=== PATIENT | male | born 1990 | race Caucasian/White ===

== ENCOUNTER 2018-04-16 19:51 | Emergency (ER) | payer BC, OTHER ==
[2018-04-16] MEDS ORDERED: LIDOCAINE 1% INJ-PF (10 MG/ML) 30 ML SDV INJ ONE (21:14)
--- NOTE | 2018-04-16 21:18 | ER Document Report ---
ED General - General Chief Complaint: Laceration to L hand Stated Complaint: LACERATION TO LEFT HAND Time Seen by Provider: 04/16/18 21:13 Mode of Arrival: Ambulatory Information source: Patient TRAVEL OUTSIDE OF THE [place] 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 Last tetanus shot was within 5 years. Not having any difficulty moving his fingers and no loss of sensation. - Related Data Allergies/Adverse Reactions: No Known Allergies Allergy (Verified 12/18/11 18:59) Past Medical History - General Information source: Patient - Social History Smoking Status: Never Smoker Family History: Reviewed & Not Pertinent Past Surgical History: Reports: Hx Orthopedic Surgery - left elbow - Immunizations Hx Diphtheria, Pertussis, Tetanus Vaccination: Yes - 2011 Review of Systems - Review of Systems Notes: Constitutional: No fevers. No chills. EENT: No eye redness. No eye pain. No ear pain. No sore throat. Cardiovascular: No chest pain. No palpitations. Respiratory: No cough. No shortness of breath. No respiratory distress. Gastrointestinal: No abdominal pain. No nausea, vomiting, or diarrhea. Genitourinary: Atraumatic. No lesions. No pain. No discharge. Musculoskeletal: Left hand laceration. Skin: No rash or lesions. Lymphatic: No swollen lymph nodes. Neurologic: No headache. No syncope. Psychiatric: No suicidal or homicidal ideation. Physical Exam - Vital signs Vitals: Temp Pulse Resp BP Pulse Ox 98.7 F 58 L 16 131/69 H 99 04/16/18 20:25 04/16/18 20:25 04/16/18 20:25 04/16/18 20:25 04/16/18 20:25 - Notes Notes: General: Well-developed, well-nourished. In no acute distress. Non-toxic appearing. Cardiac: Well-perfused. Regular rate and rhythm. No murmurs, rubs, or gallops. Pulmonary: No respiratory distress. No cyanosis. Bilateral lung fiels are clear to auscultation. Abdominal: Non-distended. Non-rigid. Bowels sounds are present in all four quadrants. No guarding or rebound. HEENT: Head is atraumatic. Conjunctivae not reddened. No tearing. PERRL. EOMI. Orbits atraumatic. No periorbital swelling or erythema. Oropharynx is without erythema, swelling, or exudates. Neck: Supple. No adenopathy. No meningismus. Dermatologic: Warm with good turgor. No rash. Atraumatic. Chest: Atraumatic. No chest wall tenderness to palpation. Musculoskeletal: 3 cm laceration to the medial aspect of the palm of the left hand. No active bleeding. Full range of motion of all digits. Neurovascular intact Genitourinary: Examination deferred Neurologic: No gross neurologic deficits. Psychiatric: Normal mood. Course - Vital Signs Vital signs: Temp Pulse Resp BP Pulse Ox 98.7 F 58 L 16 131/69 H 99 04/16/18 20:25 04/16/18 20:25 04/16/18 20:25 04/16/18 20:25 04/16/18 20:25 Procedures - Laceration/Wound Repair Left Hand Time completed: 21:55 Wound length (cm): 3 Wound's Depth, Shape: Linear Laceration pre-procedure: Sterile PPE donned, Sterile drapes applied, Shur-Clens applied Anesthetic type: 1% Lidocaine Volume Anesthetic (mLs): 6 Wound explored: Clean Wound Repaired With: Sutures Suture Size/Type: 4:0, Nylon Number of Sutures: 6 Layer Closure?: No Post-procedure wound care: Sterile dressing applied Post-procedure NV exam normal: Yes Complications: No Notes: 04/16/18 21:56 Patient tolerated the procedure well Discharge - Discharge Clinical Impression: Hand laceration Qualifiers: Encounter type: initial encounter Foreign body presence: without foreign body Laterality: left Qualified Code(s): S61.412A - Laceration without foreign body of left hand, initial encounter Disposition: HOME, SELF-CARE Instructions: Antibiotic Ointment Protection ([facility]), Laceration Care ([facility]), Soap Cleansing ([facility]) Additional Instructions: See your doctor in 10 days to have sutures removed
[2018-04-16 22:14] VITALS: BP 132/64
== END 2018-04-16 22:14 | disposition home or self-care (01) ==
LOC: ER 19:51
PROC: 0HQGXZZ Repair Left Hand Skin, External Approach (ICD-10-PCS; principal; 2018-04-16)
DX: S61.412A Laceration without foreign body of left hand, initial encounter (principal); W45.8XXA Other foreign body or object entering through skin, initial encounter; Y99.0 Civilian activity done for income or pay
CPT/HCPCS: 99282; 12002; J3490

== ENCOUNTER 2018-09-24 20:41 | Emergency (ER) | payer SELFPAY ==
--- NOTE | 2018-09-24 22:03 | ER Document Report ---
HPI - HPI Time Seen by Provider: 09/24/18 21:51 Pain Level: 5 Context: Patient is a 27-year-old male who presents emergency department with a chief complaint of left knee pain. He was playing baseball and has got hit in the face by somebody and then he felt his kneecap pop out of place. Immediately immediately went back into place. He states that it happened about 3 times. He has not taken any medications to help with pain. He is able to walk, but walks with a limp. Denies any loss of consciousness. No vomiting. No new weakness, other than the left knee due to his kneecap popping out of place. - CONSTITUTIONAL Constitutional: DENIES: Fever, Chills - NEURO Neurology: REPORTS: Headache - MUSCULOSKELETAL Musculoskeletal: REPORTS: Extremity pain - left calf injury Past Medical History - Social History Smoking Status: Current Every Day Smoker Chew tobacco use (# tins/day): No Frequency of alcohol use: Occasional Drug Abuse: None Family History: Reviewed & Not Pertinent Patient has suicidal ideation: No Patient has homicidal ideation: No Renal/ Medical History: Denies: Hx Peritoneal Dialysis Past Surgical History: Reports: Hx Orthopedic Surgery - left elbow - Immunizations Hx Diphtheria, Pertussis, Tetanus Vaccination: Yes - 2011 Vertical Provider Document - CONSTITUTIONAL Agree With Documented VS: Yes Exam Limitations: No Limitations General Appearance: No Apparent Distress - INFECTION CONTROL TRAVEL OUTSIDE OF THE [place] IN LAST 30 DAYS: No - HEENT HEENT: Atraumatic, Normocephalic, PERRLA - NECK Neck: Normal Inspection - RESPIRATORY Respiratory: Breath Sounds Normal, No Respiratory Distress - CARDIOVASCULAR Cardiovascular: Regular Rate, Regular Rhythm Pulses: Normal: Posterior tibial, Dorsalis pedis - MUSCULOSKELETAL/EXTREMETIES Musculoskeletal/Extremeties: Tender - Left knee, No Edema. negative: FROM - Decreased range of motion to left knee, Eccymosis - NEURO Level of Consciousness: Awake, Alert, Appropriate Motor/Sensory: No Motor Deficit, No Sensory Deficit - DERM Integumentary: Warm, Dry, No Rash Course - Re-evaluation Re-evalutation: Patient's history sounds consistent with a patellar dislocation that relocated. He does have a small joint effusion noted behind his patella. No evidence of a septic joint, gout flare, dislocation, or fracture on exam and imaging. Vitals wnl. At this time, I do not see an indication for labs or further imaging. Will discharge with conservative measures, return precautions, and follow-up recommendations. Patient will be given a knee immobilizer, Sebas wrap, and crutches. - Vital Signs Vital signs: Temp Pulse Resp BP Pulse Ox 98.5 F 82 18 137/73 H 97 09/24/18 20:53 09/24/18 20:53 09/24/18 20:53 09/24/18 20:53 09/24/18 20:53 Procedures - Immobilization Left Knee Pre-Proc Neuro Vasc Exam: Normal Immobilizer type: Sebas wrap, Crutches, Knee immobilizer Performed by: RN Post-Proc Neuro Vasc Exam: Normal, Unchanged from pre-exam Alignment checked and good: Yes Discharge - Discharge Clinical Impression: Patellar dislocation Qualifiers: Encounter type: initial encounter Laterality: left Qualified Code(s): S83.005A - Unspecified dislocation of left patella, initial encounter Condition: Stable Disposition: HOME, SELF-CARE Instructions: Use of Crutches ([facility]), Ice & Elevation ([facility]), Knee Immobilizing Splint ([facility]) Additional Instructions: Your x-ray does not show any acute fracture today. You likely have a ligamentous strain. You should continue to take anti-inflammatories such as ibuprofen 600 mg every 6 hours. Continue to apply ice to the area is much your able. Please follow-up with your primary care physician if you do not have improving your symptoms in the next 1-2 weeks. Please return immediately if you develop weakness, numbness, spreading redness from the area, or any other symptoms that are concerning to you. Referrals: [facility] [Provider Group] - Follow up as needed CHRISTOPHER FRIEND MD [ACTIVE STAFF] - Follow up as needed
[2018-09-24] MEDS ORDERED: ACETAMINOPHEN 325 MG TABLET ONE (22:07)
[2018-09-24] MEDS ORDERED: IBUPROFEN 600 MG TABLET ONE (22:07)
[2018-09-24] MEDS ORDERED: ACETAMINOPHEN 325 MG TABLET PO ONE (22:08)
[2018-09-24] MEDS ORDERED: IBUPROFEN 600 MG TABLET PO ONE (22:09)
--- NOTE | 2018-09-24 22:11 | RADIOLOGY REPORT (SQ) ---
EXAM DESCRIPTION: XR KNEE 4 OR MORE VIEWS COMPLETED DATE/TME: 09/24/2018 21:13 CLINICAL HISTORY: 27 years, Male, bone tenderness COMPARISON: None. NUMBER OF VIEWS: 4 TECHNIQUE: 4 view left knee LIMITATIONS: None. FINDINGS: Negative for acute fracture or dislocation. However there is suggestion of a small to moderate sized suprapatellar joint effusion. IMPRESSION: No acute osseous abnormality. Small to moderate joint effusion is suggested. copyright 2010 [employer]- All Rights Reserved
[2018-09-24 22:49] VITALS: BP 147/60
== END 2018-09-24 22:51 | disposition home or self-care (01) ==
LOC: ER 20:41
DX: S83.005A Unspecified dislocation of left patella, initial encounter (principal); W50.0XXA Accidental hit or strike by another person, initial encounter; Y93.64 Activity, baseball; F17.200 Nicotine dependence, unspecified, uncomplicated
CPT/HCPCS: 73564; L1830